=== PATIENT | male | born 1955 | race Two or more races ===

== ENCOUNTER 2019-03-06 20:52 | Emergency (ER) | payer SELFPAY ==
[~2019-03-06] VITALS: Ht 182.9 cm; Wt 81.6 kg
[2019-03-06 21:32] LABS: BASO % 0 % (0-3); EOS # 0.1 x10^3/uL (0.0-0.7); EOS % 1 % (0-3); HEMATOCRIT 47.6 % (39.0-53.0); HEMOGLOBIN 16.2 g/dL (13.0-17.5); LYMPH # 0.9 x10^3/uL (1.0-4.8); LYMPH % 11 % (24-48); MEAN CORPUSCULAR HEMOGLOBIN 30 pg (25-35); MEAN CORPUSCULAR HGB CONC 34 g/dL (31-37); MEAN CORPUSCULAR VOLUME 89 fL (79-100); MONO # 0.4 x10^3/uL (0.0-1.1); MONO % 6 % (0-9); NEUT # 6.2 x10^3uL (1.8-7.7); NEUT % 82 % (31-73); PLATELET COUNT 298 x10^3/uL (140-400); RED BLOOD COUNT 5.33 x10^6/uL (4.30-5.70); RED CELL DISTRIBUTION WIDTH 13.5 % (11.5-14.5); WHITE BLOOD COUNT 7.6 x10^3/uL (4.0-11.0)
--- NOTE | 2019-03-06 21:35 | RAD ---
CHEST AP ONLY Clinical History: CHEST PAIN Technique: AP view of the chest was obtained at 03/06/2019 9:08 PM. Comparison: None. Findings: The heart is normal size. Calcification in the mediastinum on the right is likely an old granuloma.. The pulmonary vasculature is normal. The lungs and pleural margins are clear. Impression: No evidence of an acute cardiopulmonary process. Electronically signed by: Rodrigo Tovar III, MD (03/06/2019 9:32 PM) [id number]
[2019-03-06 21:43] LABS: CALCIUM 9.2 mg/dL (8.5-10.1); CREATININE 0.9 mg/dL (0.7-1.3); GFR 85.2
[2019-03-06 21:49] LABS: ALBUMIN 3.9 g/dL (3.4-5.0); TOTAL BILIRUBIN 0.6 mg/dL (0.2-1.0)
[2019-03-06] MEDS ORDERED: FAMOTIDINE 20 MG/2 ML VIAL IVP ONE (22:00)
[2019-03-06] MEDS ORDERED: ONDANSETRON PF 4 MG/2 ML VIAL. IV ONE (22:00)
[2019-03-06] MEDS ORDERED: MORPHINE SULFATE 4 MG/ML VIAL. IV ONE (22:00)
[2019-03-06 22:54] LABS: BILIRUBIN,URINE NEGATIVE (NEG); CLARITY,URINE CLEAR; COLOR,URINE YELLOW; NITRITE,URINE NEGATIVE (NEG); PROTEIN,URINE 30 mg/dL (NEG-TRACE); UROBILINOGEN,URINE 0.2 mg/dL (0.2 mg/dL)
[2019-03-06 22:59] LABS: BACTERIA,URINE 0 /HPF (0-FEW); RBC,URINE OCC /HPF (0-2); SQUAMOUS EPITHELIAL CELL,UR OCC /LPF; WBC,URINE OCC /HPF (0-4)
[2019-03-06 23:00] LABS: HYALINE CASTS, URINE FEW /HPF
[2019-03-06] MEDS ORDERED: IOHEXOL 300 MG/ML 100ML VIAL. IV ONE (23:00)
[2019-03-06] MEDS ORDERED: CONTRAST GIVEN. MC PRN (23:00)
--- NOTE | 2019-03-06 23:16 | RAD ---
EXAM: CT ABDOMEN/PELVIS WITH CONTRAST. HISTORY: Abdominal pain. TECHNIQUE: Computed tomography of the abdomen and pelvis was performed after the intravenous administration of 75 mL Omnipaque 300. COMPARISON: None. FINDINGS: Lung windows through the visualized portions of the bases reveal mild atelectasis. Bone windows reveal no suspicious lesions. The liver, gallbladder, pancreas, adrenal glands and spleen are unremarkable. Benign appearing cysts in the kidneys measure up to 2.7 cm on the left. There are no pathologically enlarged lymph nodes. The prostate is moderately to severely enlarged. Nonfocal bladder wall thickening suggests chronic outlet obstruction or inflammation. The appendix is not inflamed. There is no small bowel obstruction. IMPRESSION: 1. Mild bladder wall thickening suggests chronic outlet obstruction or inflammation. Moderate to severe benign prostatic hypertrophy. Correlate with urinalysis. 2. No acute process is identified. *One or more of the following individualized dose reduction techniques were utilized for this examination: 1. Automated exposure control. 2. Adjustment of the mA and/or kV according to patient size. 3. Use of iterative reconstruction technique. Electronically signed by: Armen Somers MD (03/06/2019 11:14 PM) [id number]
--- NOTE | 2019-03-06 23:29 | PHYS DOC ---
Adult General Chief Complaint Chief Complaint: CHEST PAIN HPI HPI Patient is a 63 year old presents with mid epigastric pain starting 4 days ago. Pain is described as sharp, rated moderate to severe and is nonradiating. Pain is worse with palpation and movement. No fever chills, nausea vomiting or sweats. No bloody stools dark tarry stools. Denies urinary frequency urgency or burning. No chest pain palpitations shortness breath. No medications or therapy is taken prior to ED arrival. Patient has not been evaluated for his symptoms prior to today's complaint. [] Review of Systems Review of Systems His symptoms as per history of present illness. All other review symptoms are negative. All other systems were reviewed and found to be within normal limits, except as documented in this note. Current Medications Current Medications Current Medications Medications (Trade) Dose Ordered Sig/Elida Start Time Stop Time Status Last Admin Dose Admin Famotidine (Pepcid Vial) 20 mg 1X ONCE 03/06/19 22:00 03/06/19 22:01 DC 03/06/19 21:45 20 MG Info (CONTRAST GIVEN -- Rx MONITORING) 1 each PRN DAILY PRN 03/06/19 23:00 03/08/19 22:59 Iohexol (Omnipaque 300 Mg/ml) 75 ml 1X ONCE 03/06/19 23:00 03/06/19 23:01 DC 03/06/19 22:59 75 ML Morphine Sulfate (Morphine Sulfate) 4 mg 1X ONCE 03/06/19 22:00 03/06/19 22:01 DC 03/06/19 21:45 4 MG Multi-Ingredient Mouthwash/Gargle (Gi Cocktail) 20 ml 1X ONCE 03/07/19 00:00 03/07/19 00:01 DC 03/07/19 00:00 20 ML Ondansetron HCl (Zofran) 4 mg 1X ONCE 03/06/19 22:00 03/06/19 22:01 DC 03/06/19 21:45 4 MG Allergies Allergies Allergies Coded Allergies Type Severity Reaction Last Updated Verified No Known Drug Allergies 03/06/19 No Physical Exam Physical Exam Constitutional: Well developed, well nourished, moderate discomfort secondary to pain.. [] HENT: Normocephalic, atraumatic, bilateral external ears normal, oropharynx moist, nose normal. [] Eyes: PERRLA, EOMI, conjunctiva normal, no discharge. [] Neck: Normal range of motion, no tenderness. [] Cardiovascular:Heart rate regular rhythm, no murmur [] Lungs & Thorax: Bilateral breath sounds clear to auscultation [] Abdomen: Bowel sounds normal, soft, epigastric pain, tenderness to palpation.. [ ] Skin: Warm, dry, no erythema, no rash. [] Back: No tenderness. [] Extremities: No tenderness, no edema. [] Neurologic: Alert and oriented X 3, normal motor function, normal sensory function, no focal deficits noted. [] Psychologic: Affect normal, judgement normal, mood normal. [] Current Patient Data Vital Signs Vital Signs Date Time Temp Pulse Resp B/P (MAP) Pulse Ox O2 Delivery O2 Flow Rate FiO2 03/06/19 21:45 18 99 Room Air Lab Values Laboratory Tests Test 03/06/19 21:20 03/06/19 22:40 03/06/19 23:45 White Blood Count 7.6 x10^3/uL (4.0-11.0) Red Blood Count 5.33 x10^6/uL (4.30-5.70) Hemoglobin 16.2 g/dL (13.0-17.5) Hematocrit 47.6 % (39.0-53.0) Mean Corpuscular Volume 89 fL (79-100) Mean Corpuscular Hemoglobin 30 pg (25-35) Mean Corpuscular Hemoglobin Concent 34 g/dL (31-37) Red Cell Distribution Width 13.5 % (11.5-14.5) Platelet Count 298 x10^3/uL (140-400) Neutrophils (%) (Auto) 82 % (31-73) H Lymphocytes (%) (Auto) 11 % (24-48) L Monocytes (%) (Auto) 6 % (0-9) Eosinophils (%) (Auto) 1 % (0-3) Basophils (%) (Auto) 0 % (0-3) Neutrophils # (Auto) 6.2 x10^3uL (1.8-7.7) Lymphocytes # (Auto) 0.9 x10^3/uL (1.0-4.8) L Monocytes # (Auto) 0.4 x10^3/uL (0.0-1.1) Eosinophils # (Auto) 0.1 x10^3/uL (0.0-0.7) Basophils # (Auto) 0.0 x10^3/uL (0.0-0.2) Sodium Level 142 mmol/L (136-145) Potassium Level 4.0 mmol/L (3.5-5.1) Chloride Level 103 mmol/L (98-107) Carbon Dioxide Level 24 mmol/L (21-32) Anion Gap 15 (6-14) H Blood Urea Nitrogen 14 mg/dL (8-26) Creatinine 0.9 mg/dL (0.7-1.3) Estimated GFR (Cockcroft-Gault) 85.2 BUN/Creatinine Ratio 16 (6-20) Glucose Level 104 mg/dL (70-99) H Calcium Level 9.2 mg/dL (8.5-10.1) Total Bilirubin 0.6 mg/dL (0.2-1.0) Aspartate Amino Transferase (AST) 20 U/L (15-37) Alanine Aminotransferase (ALT) 27 U/L (16-63) Alkaline Phosphatase 100 U/L (46-116) Troponin I Quantitative < 0.017 ng/mL (0.000-0.055) UL-Rsa-L-Type Natriuretic Peptide 22 pg/mL (0-124) Total Protein 8.0 g/dL (6.4-8.2) Albumin 3.9 g/dL (3.4-5.0) Albumin/Globulin Ratio 1.0 (1.0-1.7) Lipase 127 U/L (73-393) Urine Collection Type Unknown Urine Color Yellow Urine Clarity Clear Urine pH 6.0 Urine Specific [place] 1.015 Urine Protein 30 mg/dL (NEG-TRACE) Urine Glucose (UA) Negative mg/dL (NEG) Urine Ketones (Stick) Negative mg/dL (NEG) Urine Blood Trace (NEG) Urine Nitrite Negative (NEG) Urine Bilirubin Negative (NEG) Urine Urobilinogen Dipstick 0.2 mg/dL (0.2 mg/dL) Urine Leukocyte Esterase Negative (NEG) Urine RBC Occ /HPF (0-2) Urine WBC Occ /HPF (0-4) Urine Squamous Epithelial Cells Occ /LPF Urine Bacteria 0 /HPF (0-FEW) Urine Hyaline Casts Few /HPF Urine Mucus Marked /LPF Lactic Acid Level 1.0 mmol/L (0.4-2.0) Laboratory Tests 03/06/19 21:20 Laboratory Tests 03/06/19 21:20 EKG EKG [EKG: Reviewed] Radiology/Procedures Radiology/Procedures [CT abdomen pelvis/chest x-ray: Reviewed. Possible acute cystitis. No other acute findings.] Course & Med Decision Making Course & Med Decision Making Pertinent Labs and Imaging studies reviewed. (See chart for details) [Epigastric pain, tenderness. EKG, lab, CT nondiagnostic. Symptoms fully resolved with GI cocktail. Patient resting comfortably. Will treat supportively with PCP follow-up. Return precautions reviewed.] Dragon Disclaimer Dragon Disclaimer This electronic medical record was generated, in whole or in part, using a voice recognition dictation system. Departure Departure Impression: Primary Impression: Acute gastritis Disposition: HOME, SELF-CARE Condition: GOOD Referrals: NO PCP (PCP) Patient Instructions: Gastritis, Adult, [id number] Additional Instructions: Please discontinue caffeine, spicy foods and take newly prescribed medications as directed. Follow-up with your PCP in 3-5 days for reevaluation. Return to the ED if new or worsening symptoms. Scripts Omeprazole Magnesium (PRILOSEC OTC) 20 Mg Tablet. 1 TAB PO DAILY, #30 TAB 1 Refill Prov: JUANA TAPIA DO 03/07/19 Famotidine (PEPCID) 20 Mg Tablet 20 MG PO BID, #30 TAB Prov: JUANA TAPIA DO 03/07/19 JUANA TAPIA DO Mar 06, 2019 23:29
[2019-03-07] MEDS ORDERED: LIDO:MAALOX 1:1 20 ML SINGLE DOSE. SWSW ONE
[2019-03-07 00:17] VITALS: BP 137/79
[2019-03-07] MEDS ORDERED: OMEP20TA63 PO (00:38)
[2019-03-07] MEDS ORDERED: FAMO-63 PO (00:38)
[2019-03-07] MEDS ORDERED: IOHEXOL 300 MG/ML 100ML VIAL. ONE (03:57)
--- NOTE | 2019-03-07 07:59 | EKG ---
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
== END 2019-03-07 00:45 | disposition home or self-care (01) ==
LOC: ER 20:52
DX: K29.00 Acute gastritis without bleeding (principal)
CPT/HCPCS: 36415; 71045; 74177; 80053; 81001; 83605; 83690; 83880; 84484; 85025; 93005; 96374; 96375; 99285; J2270; J2405; J3490; Q9967